=== PATIENT | female | born 1980 | race Hispanic/Latino ===

== ENCOUNTER → 2025-01-19 | Outpatient (CLI) | payer OTHER ==
--- NOTE | 2025-01-20 13:23 | HMCIMG ---
EXAMINATION: ULTRASOUND OF THE THYROID. CLINICAL HISTORY: Non-toxic single thyroid nodule. COMPARISON: None. TECHNIQUE: Transverse and longitudinal images were obtained through both lobes and the isthmus of the thyroid. FINDINGS: The thyroid gland is normal in caliber with homogenous tissue echotexture. The right thyroid lobe measures 4.4 x 1.4 x 1.2 cm and the left thyroid lobe measures 4.5 x 0.8 x 1.1 cm in the craniocaudal, AP, and transverse dimensions respectively. The isthmus measures 0.17 cm in AP dimension. Right lobe: There are no focal lesions. Left lobe: There are no focal lesions. No significantly enlarged lymph nodes. IMPRESSION: No significant abnormality. /[place]
== END | disposition home or self-care (01) ==
LOC: RAH 13:00
PROVIDERS: ATTEND Internal Medicine
DX: E04.1 Nontoxic single thyroid nodule (principal); Z86.39 Personal history of other endocrine, nutritional and metabolic disease
CPT/HCPCS: 76536